=== PATIENT | female | born 1930 | race Caucasian/White ===

== ENCOUNTER → 2016-12-27 | Outpatient (CLI) | payer MEDICARE, BC ==
[~2016-12-27] MED LIST: ASPIR-LOW81 MG PO; COLACE 100100 MG/CAP PO; CULTURELLE PO; EPIPEN 2-PAK1 MG/ML IM; FLEXERIL 1010 MG/TAB PO; LEVOTHROID0.125 MG PO; LIPITOR20 MG PO; LORTAB 5/500 501 TAB PO; NORCO 325 MG-51 TAB PO; PREDNISONE20 MG PO; PRESERVISION1 SGL PO; REFRESH TEARS 330 ML OP; SYNTHROID0.137 MG PO; ZANTAC 150MG T150 MG PO; ZYRTEC 10MG10 MG PO
== END ==
LOC: MC.RAD 10:13
DX: Z12.31 Encounter for screening mammogram for malignant neoplasm of breast (principal)

== ENCOUNTER → 2018-02-06 | Outpatient (CLI) | payer MEDICARE, BC | LOC: MC.RAD 10:18 | DX: Z12.31 Encounter for screening mammogram for malignant neoplasm of breast (principal) ==